=== PATIENT | male | born 1985 | race Caucasian/White ===

== ENCOUNTER → 2016-12-14 | Outpatient (REF) ==
[~2016-12-14] MED LIST: AMBI10TA PO; BUPR10TASR PO; CLON0.2T PO; EFFE150C PO; HYDROXYZINE PAMOATE PO; LEXA1TAB2 PO; PRAZ1CAP PO; TRAZO50TA PO
--- NOTE | 2016-12-14 12:38 | REP ---
LUMBAR SPINE, THREE VIEWS: HISTORY: Degenerative disc disease. There is no acute fracture or subluxation. There is an old compression fracture of the L4 vertebral body with minimal height loss. The intervertebral discs are decreased in height consistent with disc degeneration. Osteophytes are present throughout the lumbar spine. IMPRESSION: Degenerative change as described above. Signed by Osvaldo Hsu MD 12/14/2016 12:38 P
--- NOTE | 2016-12-14 12:39 | REP ---
AP AND LATERAL THORACIC SPINE, THREE VIEWS: HISTORY: Degenerative disc disease. There is no acute fracture or subluxation. There is an old compression fracture of the T11 vertebral body with minimal height loss. Anterior osteophytes are present in the mid and lower thoracic spine. IMPRESSION: Degenerative change as described above. Signed by Osvaldo Hsu MD 12/14/2016 12:46 P
--- NOTE | 2016-12-14 12:42 | REP ---
Clinical: Pain. Technique: AP, lateral, bilateral oblique views of the right hand. Findings: Old healed right boxers fracture is suggested. No acute fracture or dislocation. No significant arthritic/degenerative changes. Impression: Evidence for old healed fifth metacarpal bone fracture. Otherwise normal examination. Signed by Luis A Prieto MD 12/14/2016 12:34 P
--- NOTE | 2016-12-14 12:44 | REP ---
Clinical: Pain and disability. Technique: AP, lateral, bilateral oblique views right and left foot . Findings: The osseous structures and joint spaces are intact and there is no evidence for acute fracture or dislocation. Mild degenerative changes at the first metatarsophalangeal joint noted bilaterally including joint space narrowing and subchondral sclerosis with subtle marginal spurring. Surrounding soft tissues are unremarkable. No subcutaneous emphysema or radiodense foreign body. Impression: Mild symmetric degenerative changes at the first metatarsophalangeal joint. Signed by Luis A rPieto MD 12/14/2016 12:35 P
--- NOTE | 2016-12-14 12:55 | REP ---
Clinical: Pain. Technique: AP, lateral, bilateral oblique views of the right ankle. Subtle irregularity to the calcaneus and small well corticated fragment adjacent to the medial malleolus suggest sequelae of old injury. No acute fracture or dislocation. Ankle mortise intact. No significant soft tissue swelling. Impression: Findings suggest old injury. No acute fracture or dislocation. Signed by Luis A Prieto MD 12/14/2016 12:46 P
--- NOTE | 2016-12-14 12:57 | REP ---
Clinical: Pain and disability. Technique: AP, lateral, bilateral oblique and sunrise views of the right and left knee. Findings: Right knee appears normal for age. Left knee demonstrates subtle early degenerative changes including spurring along the lateral tibial margin and tibial spines as well as along the inferior and superior patellar margins with associated posterior patellar sclerosis. No acute fracture or dislocation is appreciated bilaterally. No definite effusion bilaterally. Impression: Mild degenerative changes involving the left knee. Signed by Luis A Prieto MD 12/14/2016 12:48 P
--- NOTE | 2016-12-15 13:37 | REP ---
CERVICAL SPINE, SEVEN VIEWS: HISTORY: Degenerative disc disease. The cervical spine is visualized from C1 to the C6-7 level in the lateral radiographs. There is no acute fracture. The C3-4 through C5-6 intervertebral discs are decreased in height, consistent with disc degeneration. The neural foramina are poorly seen. There are 2 mm of anterior subluxation of C4 and C5 with flexion. This is not seen in neutral or extension radiographs. IMPRESSION: Degenerative change, as described above. Signed by Osvaldo Hsu MD 12/15/2016 01:49 P
== END ==
LOC: M SMT 10:42
PROVIDERS: ATTEND Internal Medicine
DX: Z02.1 Encounter for pre-employment examination (principal)